=== PATIENT | female | born 1995 | race Caucasian/White ===

== ENCOUNTER → 2022-06-17 08:24 | Outpatient (CLI) | payer OTHER, SELFPAY ==
--- NOTE | ~2022-06-17 | US_ITS ---
EXAMINATION: US OB <= 14 weeks fetus DATE: 06/17/2022 08:49 INDICATION: Spotting complicating , first trimester. TECHNIQUE: Real-time transabdominal pelvic ultrasound was performed. COMPARISON: None. FINDINGS: The uterus measures 11.8 x 5.3 x 7.2 cm. There is an intrauterine gestational sac. A yolk sac is iden tified. The crown rump length measures 2.8 cm, which correlates with an estimated gestational age of 9 weeks and 4 day(s) (+/-) 6 day(s). heart motion is identified measuring 171 beats per minute (bpm) by M-mode Doppler. The placenta is normal. The right ovary measures 2.7 x 1.3 x 2.0 cm. The left ovary is not visualized. There is no free fluid in the pelvis. IMPRESSION: 1. Single living intrauterine gestation with estimated date of delivery of 01/16/2023. Reviewed, dictated and finalized at location A. IMPRESSION: 1. Single living intrauterine gestation with estimated date of delivery of .
== END ==
PROVIDERS: PCP Physician Assistant; Visit Provider Obstetrics & Gynecology Gynecology
DX: O26.851 Spotting complicating pregnancy, first trimester (principal); Z3A.00 Weeks of gestation of pregnancy not specified
CPT/HCPCS: 76801

== ENCOUNTER 2022-12-20 12:06 | Observation (INO) | payer OTHER, SELFPAY ==
[2022-12-20 12:28] VITALS: BP 114/71; PULSE 104
[2022-12-20 12:45] VITALS: BMI 37.3
--- NOTE | 2022-12-20 12:45 | OBADM ---
This patient, Cassidy Chowdhury, admitted to the OB room 115 for observation. Patient/family oriented to hospital policies and general routines including ID bracelet, bed and alarms, visiting hours, pain management, procedures, bathroom and other care routines, personal items, smoking policy, room service/diet, and visiting hours. Patient/Family are encouraged to report perceived risks to care and to ask questions if they do not understand what they are told or what they should do.
[2022-12-20 12:46] VITALS: BP 75/46; PULSE 62
[2022-12-20 12:57] LABS: Basophils Percent Auto 0.2 % (0.2-1.2); Eosinophils Absolute Auto 0.1 K/mm3 (0-0.3); Eosinophils Percent Auto 0.5 % (0-4.4); Hematocrit 36.1 % (37.0-47.0); Hemoglobin 11.5 g/dL (12.0-15.0); Immature Granulocyte Absolute 0.07 K/mm3 (0.00-0.031); Immature Granulocyte Percent A 0.7 % (0-0.5); Lymphocytes Percent Auto 16.8 % (18.3-44.2); Mean Corpuscular HGB Conc 31.9 g/dl (32-36); Mean Corpuscular Volume 84.7 fl (80-100); Mean Platelet Volume 11.9 fl (7.4-10.4); Monocytes Absolute Auto 0.6 K/mm3 (0.1-0.6); Monocytes Percent Auto 5.3 % (2.6-8.5); Neutrophils Absolute Auto 8.2 K/mm3 (1.3-6.7); Neutrophils Percent Auto 76.5 % (45.5-73.1); Platelet Count Result 172 k/mm3 (150-375); Red Blood Count 4.26 M/mm3 (4.2-5.4); Red Cell Distribution Width 12.4 % (11.5-14.5); White Blood Count 10.7 K/mm3 (4.5-10.0)
[2022-12-20 13:01] VITALS: BP 103/59; PULSE 90
[2022-12-20 13:09] LABS: Alanine Aminotransferase 16 U/L (6-35); Albumin Level 3.2 g/dL (3.5-5.1); Alkaline Phosphatase 213 U/L (38-126); Anion Gap 5 mmol/L (8-16); Aspartate Amino Transferase 23 U/L (14-36); Bilirubin,Total 0.3 mg/dL (0.2-1.3); Blood Urea Nitrogen 5 mg/dL (7-17); Calcium 8.1 mg/dL (8.4-10.2); Carbon Dioxide 23 mmol/L (22-30); Chloride 106 mmol/L (98-107); Estimated Glomerular Filt Rate > 60; Glucose 105 mg/dL (65-110); Potassium 3.3 mmol/L (3.4-5.0); Sodium 134 mmol/L (137-145)
[2022-12-20] MEDS: LACTATED RINGERS 1,000 ML 500 ML IV CONT (13:11)
[2022-12-20] MEDS: ONDANSETRON INJ 4 MG/2 ML VIAL IV PUSH (13:13)
[2022-12-20 13:30] VITALS: RESP 16; TEMP 36.6
[2022-12-20 13:31] VITALS: BP 116/72; PULSE 82
[2022-12-20 13:32] LABS: Appearance Urine Cloudy (Clear); Bacteria Urine 4+ /hpf; Bilirubin Urine Negative (Negative); Blood Urine Negative (Negative); Color Urine Dark Yellow (Yellow); Glucose Urine UA Negative (Negative); Ketones Urine Trace mg/dL (Negative); Leukocyte Esterase Ur 2+ LEU/UL (Negative); Mucus Urine Present /lpf; Need Manual Microscopic Reviewed; Nitrate Urine Negative (Negative); Protein Urine 1+ mg/dL (Negative); RBC Urine 0-2 /hpf (0-2); Specific Grav Ur 1.026 (1.001-1.035); Squamous Epithelial Cell Urine Few /hpf (Few); WBC Urine 51-100 /hpf
--- NOTE | 2022-12-20 13:35 | PC.NURSE ---
Nausea has resolved. Pt eating jello.
[2022-12-20 13:36] LABS: Add Urine Microscopic? YES
[2022-12-20 13:46] VITALS: BP 108/67; PULSE 80
[2022-12-20] MEDS: POTASSIUM CHLORIDE 20 MEQ ER TABLET 40 MEQ PO (14:22)
--- NOTE | 2022-12-25 17:56 | P.PNOB_ITS ---
OB - Triage/Final Diagnosis Visit Information Date of evaluation: 12/20/22 Reason for evaluation: other (nausea and vomiting) Comments/Additional reasons for admission: I have assessed the risk for this patient, Cassidy Chowdhury, and determined that she would benefit from observation care. Evaluation Laboratory results: Laboratory Tests 12/20/22 12:38 WBC 10.7 H RBC 4.26 Hgb 11.5 L Hct 36.1 L MCV 84.7 MCH 27.0 MCHC 31.9 L RDW 12.4 Plt Count 172 MPV 11.9 H Immature Gran % (Auto) 0.7 H Neut % (Auto) 76.5 H Lymph % (Auto) 16.8 L [place] % (Auto) 5.3 Eos % (Auto) 0.5 Baso % (Auto) 0.2 Lymph # (Auto) 1.80 [place] # (Auto) 0.6 Eos # (Auto) 0.1 Baso # (Auto) 0.0 Abs Immat Gran (auto) 0.07 H Absolute Neuts (auto) 8.2 H Absolute Nucleated RBC 0.0 Nucleated RBC % 0.0 Sodium 134 L Potassium 3.3 L Chloride 106 Carbon Dioxide 23 Anion Gap 5 L BUN 5 L Creatinine 0.50 L Estim Creat Clear Calc Not Reportable Estimated GFR > 60 Glucose 105 Uric Acid 4.0 Calcium 8.1 L Total Bilirubin 0.3 AST 23 ALT 16 Alkaline Phosphatase 213 H Total Protein 6.0 L Albumin 3.2 L Urine Color Dark yellow Urine Appearance Cloudy H Urine pH 7.0 Ur Specific [place] 1.026 Urine Protein 1+ H Urine Glucose (UA) Negative Urine Ketones Trace H Ur Blood (Man) Negative Urine Nitrate Negative Urine Bilirubin Negative Urine Urobilinogen 1.0 Add Ur Microanalysis Reviewed Leukocyte Esterase Rfl 2+ H Urine RBC 0-2 Urine WBC 51-100 H Ur Squamous Epith Cells Few Urine Bacteria 4+ H Urine Casts 3-5 Urine Mucus Present
== END 2022-12-20 14:58 | disposition home or self-care (01) ==
PROVIDERS: Advanced Practice Midwife; Admitting Provider Obstetrics & Gynecology Gynecology; PCP Physician Assistant; Visit Provider Obstetrics & Gynecology Gynecology
DX: O21.9 Vomiting of pregnancy, unspecified (principal); Z3A.36 36 weeks gestation of pregnancy
CPT/HCPCS: 36415; 80053; 81001; 84550; 85025; 87086; 96361; 96374; A9270; G0378; G0379; J2405; J7120

== ENCOUNTER 2023-01-01 01:39 | Inpatient (IN) | payer OTHER, SELFPAY ==
[2023-01-01] VITALS (123 sets, daily range): BP systolic 88–148; BP diastolic 44–95; PULSE 56–118; RESP 15–18; TEMP 36.5–37.7; O2SAT 75–100; BMI 37.9
--- NOTE | 2023-01-01 01:39 | LDADM ---
This patient, Cassidy Chowdhury, was admitted to Labor/Delivery/Recovery 105 on 01/01/23 at 01:39. Plans for labor, pain management and were discussed with patient. Patient/family oriented to hospital policies and general routines including ID bracelet, bed and alarms, visiting hours, pain management, procedures, bathroom and other care routines, personal items, smoking policy, room service/diet and guest tray routines, security routines, and visiting hours. Patient/Family are encouraged to report perceived risks to care and to ask questions if they do not understand what they are told or what they should do. See OBIX for further documentation.
[2023-01-01 04:40] LABS: Basophils Percent Auto 0.1 % (0.2-1.2); Eosinophils Percent Auto 0.1 % (0-4.4); Hematocrit 38.4 % (37.0-47.0); Hemoglobin 11.9 g/dL (12.0-15.0); Immature Granulocyte Absolute 0.09 K/mm3 (0.00-0.031); Immature Granulocyte Percent A 0.6 % (0-0.5); Immature Platelet Fraction Pct 18.1 % (0.9-11.2); Lymphocytes Absolute Auto 1.82 K/mm3 (0.9-3.2); Lymphocytes Percent Auto 12.5 % (18.3-44.2); Mean Corpuscular Hemoglobin 26.3 pg (26-34); Mean Platelet Volume 13.2 fl (7.4-10.4); Monocytes Absolute Auto 0.6 K/mm3 (0.1-0.6); Monocytes Percent Auto 3.9 % (2.6-8.5); Neutrophils Absolute Auto 12.1 K/mm3 (1.3-6.7); Neutrophils Percent Auto 82.8 % (45.5-73.1); Platelet Count Result 190 k/mm3 (150-375); Red Blood Count 4.52 M/mm3 (4.2-5.4); Red Cell Distribution Width 12.7 % (11.5-14.5); White Blood Count 14.6 K/mm3 (4.5-10.0)
[2023-01-01] MEDS: ONDANSETRON INJ 4 MG/2 ML VIAL IV PUSH (04:40)
[2023-01-01] MEDS: fentaNYL CITRATE INJ (*CRX) 100 MCG/2 ML VIAL 50 MCG IV PUSH (04:40)
[2023-01-01] MEDS: LACTATED RINGERS 1,000 ML 125 ML IV CONT ×2 (04:41→05:18)
--- NOTE | 2023-01-01 05:19 | WPDANESEPP ---
Anes - Eval Pre Procedure Procedure: Labor epidural Date/Time: 01/01/23 05:19 Surgeon: kevin Preop Diagnosis: Abdominal pain with contractions Pre Op Diagnosis: Leaking Patient Data Age: 27 Gender: F Height: 1.57 m Weight: 94 kg Last Vital Signs Temp 97.9 F 01/01/23 04:00 Pulse 84 01/01/23 05:18 Resp 15 01/01/23 04:00 BP 115/72 01/01/23 05:18 Pulse Ox 100 01/01/23 05:15 O2 Del Method Room Air 01/01/23 02:24 Allergies Allergy/AdvReac Type Severity Reaction Status Date / Time Sulfa (Sulfonamide Allergy Itching Verified 12/18/22 14:30 Antibiotics) Home Medications Medication Instructions Recorded Confirmed Type escitalopram oxalate 10 mg tablet 10 mg PO DAILY 12/18/22 01/01/23 History (Lexapro) vits no.126-ferrous fum 1 tablet PO DAILY 12/18/22 01/01/23 History 28 mg iron-folic acid 800 mcg tablet (Classic ) aspirin 81 mg chewable tablet 81 mg PO DAILY 12/20/22 01/01/23 History ergocalciferol (vitamin D2) 1,250 50,000 unit PO 2XW 12/20/22 01/01/23 History mcg (50,000 unit) capsule Laboratory Tests 01/01/23 04:29 WBC 14.6 H K/mm3 (4.5-10.0) RBC 4.52 M/mm3 (4.2-5.4) Hgb 11.9 L g/dL (12.0-15.0) Hct 38.4 % (37.0-47.0) MCV 85.0 fl (80-100) MCH 26.3 pg (26-34) MCHC 31.0 L g/dl (32-36) RDW 12.7 % (11.5-14.5) Plt Count 190 k/mm3 (150-375) MPV 13.2 H fl (7.4-10.4) Immature Gran % (Auto) 0.6 H % (0-0.5) Neut % (Auto) 82.8 H % (45.5-73.1) Lymph % (Auto) 12.5 L % (18.3-44.2) [place] % (Auto) 3.9 % (2.6-8.5) Eos % (Auto) 0.1 % (0-4.4) Baso % (Auto) 0.1 L % (0.2-1.2) Lymph # (Auto) 1.82 K/mm3 (0.9-3.2) [place] # (Auto) 0.6 K/mm3 (0.1-0.6) Eos # (Auto) 0.0 K/mm3 (0-0.3) Baso # (Auto) 0.0 K/mm3 (0.0-0.1) Abs Immat Gran (auto) 0.09 H K/mm3 (0.00-0.031) Absolute Neuts (auto) 12.1 H K/mm3 (1.3-6.7) Absolute Nucleated RBC 0.0 K/mm3 (0.0-0.012) Nucleated RBC % 0.0 % (0.0-0.2) % Immature Plt Fraction 18.1 H % (0.9-11.2) RPR Pending HIV 1&2 Ab/P24 Ag 4thGn Pending : gestational age HCG: positive Patient hx anesthesia problems: none Family hx anesthesia problems: none Results Review: All pre-operative results and documents have been reviewed as part of the pre-operative evaluation. [facility] Family History Family History (Updated 12/18/22 @ 14:36 by Chanell Trinidad RN) Mother Eclampsia Diabetes mellitus Social History Social History Smoking status: Never smoker Substance use: never Lack of Transportation: YES Lack of Food: Never True Current Housing: I Have Housing Concerned About Future Housing: No Difficulty Paying Gas/Electric Bills: No Difficulty Paying for Meds: No Currently Unemployed: No Education: High School Diploma/GED Difficulty w/ Childcare or Family Care: No Spiritual care concerns: No Exam Day of Procedure 01/01/23 05:19
[2023-01-01 05:32] LABS: HIV 1/2 Ab P24 Ag Result Negative (Negative)
[2023-01-01] MEDS: OXYTOCIN 30 UNITS/NS 500 ML 30 UNITS/500 ML BAG 6 UNITS IV CONT (07:20)
--- NOTE | 2023-01-01 07:51 | WPDOBADMIT ---
Obstetrics - Admit Note Admission Note: record reviewed. No pertinent additions to the history and/or any subsequent changes in the physical findings that are not consistent with the expected course of the were found. Additions to the history and/or subsequent changes in the physical findings follow. Here with SROM in labor. Now with BBOW. AROM forebag. IUPC placed as contractions not picking up with external. FHTs reactive. Pitocin if needed. Comfortable with epidural.
--- NOTE | 2023-01-01 11:01 | PM.OBPRVD ---
OB - Delivery Note Procedure Delivery date: 01/01/23 Procedure: Delivery augmentation: Pitocin Delivery monitor: External FHT and Internal Uterine Route of delivery: Laceration Description: Perineal - 2nd Degree Delivery repair: vicryl (3-0) Specimen: No Quantitative Blood Loss (ml): 200 Anesthesia type: Epidural Disposition: Floor Baby Date of : 01/01/23 Weeks of gestation at delivery: 39 gender: Male presentation: vertex position: Right Occiput Anterior Placenta delivery description: Spontaneous Cord Vessel Description: 3 Vessels and Delayed Cord Clamping score one minute: 8 score five minutes: 9
--- NOTE | 2023-01-01 11:02 | PM.OBDSVD ---
DS: Admitting Diagnosis Discharge Date 01/03/23 Admitting Diagnosis SROM @ 39 wks DS: Discharge Diagnosis Discharge Diagnosis (1) (normal spontaneous vaginal delivery): Code(s): O80 - Encounter for full-term uncomplicated delivery Status: Acute OB - DS: Summary OB Procedures : Ultrasound OB Procedures Intrapartum: Spontaneous Vag Delivery OB Procedures: : None Peripartum Data Infant Delivery Method: Natural Vaginal Laceration Description: Perineal - 2nd Degree complications: none Status at Discharge Functional status at discharge: independent ambulation Overall status at discharge: patient is progressing back to baseline Time Spent with Patient Time attestation: Total time spent providing and/or coordinating discharge services: DS: Data Data Completed and Pending Labs on day of discharge: Labs from last 24 hours 01/01/23 04:29 WBC 14.6 H RBC 4.52 Hgb 11.9 L Hct 38.4 MCV 85.0 MCH 26.3 MCHC 31.0 L RDW 12.7 Plt Count 190 MPV 13.2 H Immature Gran % (Auto) 0.6 H Neut % (Auto) 82.8 H Lymph % (Auto) 12.5 L [place] % (Auto) 3.9 Eos % (Auto) 0.1 Baso % (Auto) 0.1 L Lymph # (Auto) 1.82 [place] # (Auto) 0.6 Eos # (Auto) 0.0 Baso # (Auto) 0.0 Abs Immat Gran (auto) 0.09 H Absolute Neuts (auto) 12.1 H Absolute Nucleated RBC 0.0 Nucleated RBC % 0.0 % Immature Plt Fraction 18.1 H RPR Pending HIV 1&2 Ab/P24 Ag 4thGn Negative Blood Type O Positive Antibody Screen Negative Discharge Plan Discharge Attending physician on discharge: Gina Rosario Discharging Clinician: Gina Rosario Anticipated Discharge Date/Time: 01/03/23 11:03 Patient Disposition: Home, Self-Care Activity: may shower and pelvic rest Diet: regular Patient Instructions: Antibiotic Form Stand Alone Forms: General Discharge Information Follow-up/Referrals: Gina Rosario MD [Physician] - 6 Weeks Discharge Medications: Continued ergocalciferol (vitamin D2) 1,250 mcg (50,000 unit) capsule 50,000 unit PO 2XW Rx Instructions: Takes every Sunday and Sunday escitalopram oxalate [Lexapro] 10 mg Tablet 10 mg PO DAILY Classic 28 mg iron- 800 mcg Tablet 1 tablet PO DAILY Discontinued aspirin 81 mg Tablet,Chewable 81 mg PO DAILY Date of admission: 01/01/23 01:39 Primary Care Provider: Anat,Almaz Admitting Provider: Gina Rosario Attending physician on admission: Gina Rosario Condition: Stable
[2023-01-01] MEDS: OXYTOCIN 30 UNITS/NS 500 ML 30 UNITS/500 ML BAG 125 UNITS IV CONT (11:23)
[2023-01-01] MEDS: ACETAMINOPHEN 325 MG TABLET 650 MG PO (12:56)
[2023-01-01] MEDS: BENZOCAINE 20% AER SPR (*SP) 56 GM CAN 1 SPRAY TOPICAL (17:12)
[2023-01-01] MEDS: IBUPROFEN 600 MG TABLET PO ×2 (17:13→23:56)
[2023-01-01] MEDS: DOCUSATE SODIUM 100 MG CAPSULE PO (17:13)
[2023-01-02 00:01] VITALS: BP 111/75; PULSE 101; RESP 16; TEMP 37.6; O2SAT 98
[2023-01-02 07:50] VITALS: BP 104/67; PULSE 86; RESP 16; TEMP 36.9; O2SAT 99
--- NOTE | 2023-01-02 07:52 | PM.OBPNVD ---
OB - PN: Subj Subjective Date/time seen: 01/02/23 07:52 Interval history: c/o pain with breast feeding Patient comments: pain well controlled baby status: doing well OB - PN: Obj Data Labs 01/01/23 04:29 OB - PN A/P Plan day: 1 Plan: routine care Time Spent With Patient Time: Total time spent is greater than 50% in coordination of care (as documented) at patient's floor/unit and/or counseling patient:
[2023-01-02 07:57] LABS: Hematocrit 29.4 % (37.0-47.0); Hemoglobin 9.2 g/dL (12.0-15.0)
[2023-01-02] MEDS: ESCITALOPRAM OXALATE 10 MG TABLET PO (08:49)
[2023-01-02] MEDS: MULTIVIT/MIN/PREN/FOL AC/IRON TABLET 1 TAB PO (08:49)
[2023-01-02] MEDS: DOCUSATE SODIUM 100 MG CAPSULE PO ×2 (08:49→15:29)
[2023-01-02] MEDS: IBUPROFEN 600 MG TABLET PO ×2 (08:49→14:19)
--- NOTE | 2023-01-02 08:53 | WPDANLDPN2 ---
Anes-Prog Note L&D Date/Time: 01/02/23 08:53 Comfortable throughout: labor and delivery Neuraxial method: epidural Epidural/Spinal procedure site: clean & non-tender Neuro status: Neuro function grossly intact. Cardiovascular status: normal Respiratory status: normal Airway patency: baseline Mental status: baseline Post-Op hydration status: normal Vital Signs: Last Vital Signs Temp 37.6 C 01/02/23 00:01 Pulse 101 H 01/02/23 00:01 Resp 16 01/02/23 00:01 BP 111/75 01/02/23 00:01 Pulse Ox 98 01/02/23 00:01 O2 Del Method Room Air 01/01/23 02:24 Pain score (VAS): 2/10 Patient feedback: Patient satisfied with anesthetic care.
[2023-01-02 08:56] LABS: Rapid Plasma Reagin Non-Reactive (NonReactive)
--- NOTE | 2023-01-02 14:52 | PC.NURSE ---
[id number] Introductions were made, then consulted with patient to assess needs related to . A visitor is present in the room. Mother led the conversation with her?plans to feed?her infant with pumping breast milk to feed with a bottle and the?experience so far. Mother states she has bruises all over her breast, her nipples are sore and it hurts to breastfeed. Mother is smiling now but states she had a breakdown yesterday and called her Aunt in [place]. Mother plans to protect her milk supply, then practice at home after her milk comes in. Breast pump provided before met patient due to ineffective feeding. We discussed consistent pumping to prevent engorgement, clogged duct, mastitis and build a milk supply by pumping every 3 hours (8 times in 24 hours) 1-2 times at night. Mother voiced understanding of the education shared. Mother declines assistance from the at this time. Visitors entered the room and the consult was completed. The Primary RN's kalyan Galaviz is present. Resources provided for inpatient services with name written on the white board.
[2023-01-02] MEDS: POLYSACCHARIDE IRON COMPLEX 150 MG CAPSULE PO (15:28)
[2023-01-02] MEDS: LANOLIN (LANSINOH) 7.5 GM CREAM 1 APPLIC TOPICAL (15:28)
[2023-01-02 20:00] VITALS: BP 116/77; PULSE 107; RESP 18; TEMP 36.5
[2023-01-03] MEDS: IBUPROFEN 600 MG TABLET PO (01:09)
--- NOTE | 2023-01-03 06:37 | PM.OBPNVD ---
OB - PN: Subj Subjective Date/time seen: 01/03/23 06:37 Patient comments: no complaints and pain well controlled baby status: doing well OB - PN: Obj Data Labs 01/02/23 07:48 Labs: Laboratory Results - last 24 hr 01/01/23 01/02/23 04:29 07:48 Hgb 9.2 L Hct 29.4 L RPR Non-reactive OB - PN A/P Plan day: 2 Plan: routine care, discharge home, follow up 6 weeks and other (plans condoms for bc) Time Spent With Patient Time: Total time spent is greater than 50% in coordination of care (as documented) at patient's floor/unit and/or counseling patient: Exam : Bimanual exam- vagina & uterus: other (Uterus firm, nt @U)
[2023-01-03 08:10] VITALS: BP 116/69; PULSE 93; RESP 16; TEMP 36.5; O2SAT 97
[2023-01-03] MEDS: POLYSACCHARIDE IRON COMPLEX 150 MG CAPSULE PO (09:25)
[2023-01-03] MEDS: ESCITALOPRAM OXALATE 10 MG TABLET PO (09:25)
[2023-01-03] MEDS: MULTIVIT/MIN/PREN/FOL AC/IRON TABLET 1 TAB PO (09:25)
[2023-01-03] MEDS: DOCUSATE SODIUM 100 MG CAPSULE PO (09:25)
[2023-01-04 10:37] VITALS: BP 109/69; PULSE 100; RESP 18; TEMP 37.1; O2SAT 98
== END 2023-01-03 11:23 | disposition home or self-care (01) | DRG 807 ==
LOC: ANHLDR 11:03 → ANHOB2 13:44
PROVIDERS: Admitting Provider Student in an Organized Health Care Education/Training Program; PCP Physician Assistant; Visit Provider Obstetrics & Gynecology Gynecology
DX: O69.81X0 Labor and delivery complicated by cord around neck, without compression, not applicable or unspecified (principal); Z37.0 Single live birth; Z3A.37 37 weeks gestation of pregnancy; O70.1 Second degree perineal laceration during delivery
CPT/HCPCS: 36415; 84112; 85014; 85018; 85025; 85055; 86592; 86703; 86850; 86900; 86901; A9270; G0432; J2405; J2590; J2795; J3010; J7120